=== PATIENT | male | born 1960 | race Caucasian/White ===

== ENCOUNTER 2016-11-10 10:44 | Emergency (ER) | payer SELFPAY ==
[2016-11-10 10:55] VITALS: BP 118/84
[2016-11-10 11:25] LABS: DAU SCREEN DISCLAIMER
== END 2016-11-10 11:36 | disposition home or self-care (01) ==
LOC: ED 11:30
DX: Z00.8 Encounter for other general examination (principal); F12.20 Cannabis dependence, uncomplicated; F10.20 Alcohol dependence, uncomplicated; F17.210 Nicotine dependence, cigarettes, uncomplicated
CPT/HCPCS: 80307; 99284